=== PATIENT | female | born 1985 | race Caucasian/White ===

== ENCOUNTER 2017-01-21 13:46 | Emergency (ER) | payer MEDICAID ==
--- NOTE | 2017-01-22 10:55 | ER ---
ADMIT: 01/21/2017 RM/LOC: ER [facility] MR#: [id number] [facility] [address] [place] [id number] MARENIMTIAZ Keaton [address] [place] [address] Emergency Room Report SEX: F AGE: 31 : 1985 DATE: 01/21/2017 CHIEF COMPLAINT: "Fainting." HISTORY OF PRESENT ILLNESS: A 31-year-old female, who presents to the ER with complaints of "blacking out." She states she has had episodes like this in the past when she has been before. She states she feels very warm, her vision goes white, she feels lightheaded and dizzy like she could fall over, however, this improved. She is able to sit down and rest. She is on Lexapro for anxiety and depression. She has been on Lexapro. However, she stopped on Friday as she ran out of the medicine and has not refilled this yet. She is currently 16-weeks . Denies any abdominal pain. She has had some cramping with the . She does have some "butterflies"consistent with her movement. She states when this happens, she feels nauseous. She feels weak. Denies any chest pain or shortness of breath associated with this. She has never been diagnosed with heart problems or arrhythmias. PAST MEDICAL HISTORY: 1. Anxiety. 2. Depression. MEDICATIONS: 1. Lexapro. 2. vitamin. ALLERGIES: NONE. COURSE IN THE EMERGENCY ROOM: The patient was seen and examined. GENERAL: Afebrile, nontoxic, in no acute distress. She is somewhat anxious. HEENT: Normocephalic and atraumatic. Pupils are equal and reactive. No nystagmus. NECK: Soft and supple. CHEST: Clear. No wheezes, rhonchi, or rales. HEART: Regular. ABDOMEN: Soft and nontender. SKIN: Warm and dry. EXTREMITIES: No pedal edema. NEURO: She is alert and oriented. Speech is appropriate. Cranial nerves are grossly intact with no evidence of acute stroke. She has normal gait. Motor and sensation are intact in upper and lower extremities. CBC; mildly elevated white count at 10.6, hemoglobin 13.2. Chemistries are unremarkable. She does have a glucose of 63. While in Department, she received 1 L of normal saline. She was given a small snack to help raise her blood sugar. She was given Zofran for nausea control. She was also given her dose of Lexapro as inducing some of this could be related to the abrupt cessation of her SSRI as she was not feeling well throughout most of the ADMIT: 01/21/2017 RM/LOC: [facility] MR#: [id number] [address] [id number] IMTIAZ ENGEL [address] [place] [address] Emergency Room Report SEX: F AGE: 31 : 1985 weekend. I did discuss with her the risks SSRI with . Recommended follow up with primary care provider to taper off this medication if desired, however, this does need to be done in a controlled setting without abrupt stopping. CLINICAL IMPRESSION: 1. Vasovagal syncope. 2. Hypoglycemia. DISPOSITION: She was discharged home. Increase fluids. Resume the Lexapro. She is to follow up with primary care provider. Taper off this if desired during this . Recommended compression stockings if standing for long periods of time, frequent small snacks. She is to follow up with her primary care provider or [employer] as needed. Certainly, return with worsening signs or symptoms. Discharged home in stable condition. GRETCHEN Palomino / Payam Vela MD / harjeet JOB #: [id number] CC: Payam Vela MD, Attending Physician UNKNOWN, Family Physician
== END 2017-01-21 15:45 | disposition home or self-care (01) ==
LOC: ER 13:46
DX: O99.89 Other specified diseases and conditions complicating pregnancy, childbirth and the puerperium (principal); R55 Syncope and collapse; O24.419 Gestational diabetes mellitus in pregnancy, unspecified control; E16.2 Hypoglycemia, unspecified; Z3A.16 16 weeks gestation of pregnancy; O99.342 Other mental disorders complicating pregnancy, second trimester; F32.9 Major depressive disorder, single episode, unspecified; F41.9 Anxiety disorder, unspecified; Z79.899 Other long term (current) drug therapy